=== PATIENT | male | born 1965 | race Caucasian/White ===

== ENCOUNTER 2025-02-05 07:30 | Outpatient (CLI) | payer BC, SELFPAY ==
--- NOTE | ~2025-02-05 | PE_ITS ---
EXAMINATION: PET_PETPSMAST_PT DATE: 02/05/2025 11:43 INDICATION: Prostate cancer TECHNIQUE: 4.867 mCi of Illucix Ga-[id number]) was administered i.v. Low dose computed daphne graphy (CT) images were acquired from the base of the brain to the base of the brain to the proximal thighs for attenuation correction and anatomic localization. Positron emission tomography (PET) image s were acquired in the same distribution beginning 71 minutes after injection. Images including fused PET/CT images were reconstructed in axial, coronal, and sagittal planes. Automated exposure control technique was employed. The dose-length product was 1086.88mGy-cm. COMPARISON: None FINDINGS: Head/neck: Typical pattern of symmetric physiologic increased activity in the lacrimal, parotid and submandibula r glands as well as along the mucosa of the nasal and oral cavities, pharynx and hypopharynx. No path ologically enlarged cervical lymphadenopathy or suspicious foci of increased uptake in the visualized head or neck. Chest: Mild dependent atelectasis in both lungs. No suspicious pulmonary nodules or pleural effusion. Heart size is normal. Atherosclerotic coronary artery calcific lesion. No pericardial effusion. Thoracic ao rta is normal in caliber. No pathologically enlarged or PSMA avid thoracic lymphadenopathy. Abdomen/pelvis/proximal thighs: Physiologic renal accumulation and excretion of activity in the kidneys, bladder and along portions o f ureters. Prostatomegaly measuring 5.4 x 4.3 cm. There is a small focus of increased activity human relations manager ior and the left peripheral zone of the prostate with maximal SUV of 5.1 consistent with reported [facility] prostate cancer. Normal degree and slightly heterogenous pattern of increased uptake throughout the liver and spleen without radiologic correlate or dominant PSMA avid lesion. The gallbladder, panc reas and bilateral adrenal glands are normal. Moderate uptake scattered throughout the bowels with ty pical duodenal and proximal jejunal predominance and without radiologic correlate, also likely physio logic. Mild scattered colonic diverticulosis without adjacent inflammatory stranding to suggest diver ticular colitis. Normal appendix. No other abnormal foci of increased uptake or pathologically enlarg ed lymphadenopathy in the abdomen, pelvis or proximal thighs. Musculoskeletal: There are a few small densely sclerotic likely lesions without associated PSMA neck activity in the s pine consistent with bone islands. No other suspicious lytic, blastic or abnormally PSA may avid bone lesions. IMPRESSION: 1. Small focus of moderate uptake in the left peripheral zone of the enlarged prostate consistent wit h primary prostate cancer. No evident metastatic disease. Reviewed, dictated and finalized at location A. IMPRESSION: 1. Small focus of moderate uptake in the left peripheral zone of the enlarged p rostate consistent with primary prostate cancer. No evident metastatic disease.
--- OUTSIDE RECORDS SUMMARY | 2025-02-05 07:35 | XMS_ITS | Clinical Summary ---
Author Organization [facility] Address [facility] [place] [address] Care Team Providers Care Programmer Analyst Health It Name Role Phone Hattie Sharma MD Primary Care Provider [phone] Allergies Active Allergy Reactions Criticality Noted Date Comments Penicillins Other (see comment) 07/30/2018 Unknown childhood reaction Medications simvastatin 20 MG tablet Take 20 mg by mouth every evening. 06/11/2021 Active lisinopril 2.5 MG tablet Take 5 mg by mouth daily. 06/11/2021 Active Active Problems Problem Noted Date Diagnosed Date Essential hypertension Dyslipidemia Immunizations Immunization Administration Dates Next Due PFIZER COVID-19 (ORIGINAL FO RMULATION, PURPLE CAP) mRNA, LNP-S, PF, 30 MCG/0.3 ML DOSE 11/17/2020,10/28/2020 Family History Medical History Relation Comments Heart Attack Father Relation Status Comments Father (Age 83) Social History Tobacco Use Types Packs/Day Years Used Date Smoking Tobacco: Never Smokeless Tobacco: Never Alcohol Use Standard Drinks/Week Comments Yes 0 (1 standard drink = 0.6 oz pur e alcohol) 3x a week Sex and Gender Information Value Date Recorded Sex Assigned at Not on file Legal Sex Male 10:59 AM CDT Gender Identity Not on file Sexual Orientation Not on file 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 Not on file Not on file Not on file Last Filed Vital Signs Vital Sign Reading Time Taken Comments Blood Pressure 132/88 06/23/2021 12:50 PM NEUROPSYCHIATRIC AIDE Pulse 75 06/23/2021 12:50 PM NEUROPSYCHIATRIC AIDE Temperature - - Respiratory Rate 18 06/22/2021 8:40 PM NEUROPSYCHIATRIC AIDE Oxygen Saturation 98% 06/23/2021 12:50 PM NEUROPSYCHIATRIC AIDE Inhaled Oxygen Concentration - - Weight 86.6 kg (191 lb) 06/23/2021 12:50 PM NEUROPSYCHIATRIC AIDE Height 180.3 cm (5' 11) 06/23/2021 12:50 PM NEUROPSYCHIATRIC AIDE Body Mass Index 26.64 06/23/2021 12:50 PM NEUROPSYCHIATRIC AIDE Plan of Treatment Health Maintenance Due Date Last Done Comments Colorectal Cancer Screening Colonoscopy (10 Years) 1963 Annual Physical 1966 Hepatitis C 1981 DTaP, Tdap and Td Vaccines ( 1 - Tdap) 1982 Pneumococcal Vaccine: 50+ Years (1 of 1 - PCV) 2013 Zoster Vaccines (1 of 2) 2013 COVID-19 Vaccine (3 - 2023-2 5 season) 2024 11/17/2020, 10/28/2020 RSV Immunization or 60+ Years (1 - 1-dose 75+ series) 2038 Meningococcal B Vaccine Aged Out No l onger eligible based on patient's age to complete this topic Meningococcal Vaccine Aged Out No dionisio raj eligible based on patient's age to complete this topic RSV Immunizations Under 20 Months Aged Out No longer eligible b ased on patient's age to complete this topic Insurance [facility] Care Teams Programmer Analyst Health It Relationship Specialty Start Date End Date Hattie Sharma MD PCP - General INTERNAL MEDICINE 06/22/21
== END 2025-02-05 07:31 | disposition home or self-care (01) ==
PROVIDERS: PCP Internal Medicine; Visit Provider Urology
DX: C61 Malignant neoplasm of prostate (principal)
CPT/HCPCS: 78815; A9596